=== PATIENT | female | born 1965 | race Caucasian/White ===

== ENCOUNTER 2019-06-29 17:12 | Inpatient (IN) | payer MEDICAID ==
[~2019-06-29] VITALS: Ht 147.3 cm; Wt 49.9 kg
[2019-06-29 17:30] VITALS: Ht 147.3 cm; Wt 49.9 kg
[2019-06-29 20:48] LABS: BASOPHIL % 0.3 % (0-2); PLATELET COUNT 271 x10^3mcL (130-400); RED CELL DISTRIBUTION WIDTH 12.9 % (11.5-14.5)
[2019-06-29 21:16] LABS: CALCIUM 9.4 mg/dL (8.5-10.1); CARBON DIOXIDE 24.2 mmol/L (21-32); CHLORIDE SERUM 104 mmol/L (98-107); CREATININE SERUM 0.7 mg/dL (0.6-1.0); GFR1 > 60 mL/min; GLUCOSE SERUM 82 mg/dL (74-106); POTASSIUM SERUM 3.5 mmol/L (3.5-5.1); SODIUM SERUM 141 mmol/L (136-145)
[2019-06-29 21:17] LABS: microscopic required? YES; urine erythrocyte TRACE (NEGATIVE)
[2019-06-29 21:27] LABS: ALBUMIN 4.1 g/dL (3.4-5.0); ALKALINE PHOSPHATASE 74 U/L (46-116); ALT/SGPT 28 U/L (14-59); AST/SGOT 21 U/L (15-37); BILIRUBIN TOTAL 0.5 mg/dL (0.20-1.00); TOTAL PROTEIN, SERUM 7.7 g/dL (6.4-8.2)
[2019-06-29 21:45] LABS: LIPASE 11027 IU/L (73-393)
[2019-06-29] MEDS ORDERED: NATURE'S BLEND M3 MG PO (23:48)
[2019-06-29] MEDS ORDERED: CEPHALEXIN500 MG PO (23:48)
[2019-06-29] MEDS ORDERED: BACLOFEN10 MG PO (23:51)
[2019-06-29] MEDS ORDERED: ATORVASTATIN CA20 M1 PO (23:52)
[2019-06-29] MEDS ORDERED: CAMBIA50 M1 PO (23:52)
[2019-06-29] MEDS ORDERED: IRON240 MG PO (23:52)
[2019-06-30 00:02] LABS: CHOLESTEROL/HDL RATIO 2.4
[2019-06-30 00:46] VITALS: BP 126/71
[2019-06-30 04:51] VITALS: BP 109/56
[2019-06-30 06:33] LABS: BASOPHIL % 0.4 % (0-2); PLATELET COUNT 256 x10^3mcL (130-400)
[2019-06-30 07:50] LABS: CALCIUM 8.3 mg/dL (8.5-10.1); CARBON DIOXIDE 23.4 mmol/L (21-32); CHLORIDE SERUM 107 mmol/L (98-107); CREATININE SERUM 0.6 mg/dL (0.6-1.0); GFR1 > 60 mL/min; GLUCOSE SERUM 89 mg/dL (74-106); MAGNESIUM 2.1 mg/dL (1.8-2.4); PHOSPHOROUS 3.4 mg/dL (2.5-4.9); POTASSIUM SERUM 3.6 mmol/L (3.5-5.1); SODIUM SERUM 142 mmol/L (136-145)
[2019-06-30 07:57] VITALS: BP 104/53
[2019-06-30 09:45] LABS: BILIRUBIN DIRECT 0.14 mg/dL (0.0-0.2); BILIRUBIN TOTAL 0.4 mg/dL (0.20-1.00); TOTAL PROTEIN, SERUM 6.4 g/dL (6.4-8.2)
[2019-06-30 09:47] LABS: ALBUMIN 3.3 g/dL (3.4-5.0)
[2019-06-30 11:59] VITALS: BP 108/57
[2019-06-30 16:00] VITALS: BP 109/56
[2019-06-30 18:49] LABS: AMPHETAMINE QUAL UR NONE DETECTED (See below)
[2019-06-30 21:12] VITALS: BP 100/60
[2019-07-01 05:36] VITALS: BP 100/54
[2019-07-01 06:45] LABS: BASOPHIL % 0.3 % (0-2); PLATELET COUNT 243 x10^3mcL (130-400); RED CELL DISTRIBUTION WIDTH 12.9 % (11.5-14.5)
[2019-07-01 07:01] LABS: CALCIUM 8.2 mg/dL (8.5-10.1); CARBON DIOXIDE 22.9 mmol/L (21-32); CHLORIDE SERUM 107 mmol/L (98-107); CREATININE SERUM 0.5 mg/dL (0.6-1.0); GFR1 > 60 mL/min; GLUCOSE SERUM 79 mg/dL (74-106); LIPASE 276 IU/L (73-393); MAGNESIUM 1.9 mg/dL (1.8-2.4); PHOSPHOROUS 2.7 mg/dL (2.5-4.9); POTASSIUM SERUM 3.3 mmol/L (3.5-5.1); SODIUM SERUM 142 mmol/L (136-145)
[2019-07-01 08:03] VITALS: BP 113/65
[2019-07-01 12:02] VITALS: BP 111/61
[2019-07-01 16:39] VITALS: BP 118/64
[2019-07-01 20:06] VITALS: BP 136/76
[2019-07-02 05:20] VITALS: BP 129/75
[2019-07-02 08:16] VITALS: BP 136/83
[2019-07-02 09:15] VITALS: BP 136/83
== END 2019-07-02 10:47 | disposition home or self-care (01) | DRG 282 ==
LOC: ED 17:12 → MU 22:35
PROVIDERS: Emergency Medicine; Internal Medicine Gastroenterology; ADMIT Internal Medicine
PROC: 0DB68ZX Excision of Stomach, Via Natural or Artificial Opening Endoscopic, Diagnostic (ICD-10-PCS; principal; 2019-07-01 15:15)
DX: K85.90 Acute pancreatitis without necrosis or infection, unspecified (principal); E44.1 Mild protein-calorie malnutrition; E78.00 Pure hypercholesterolemia, unspecified; N39.0 Urinary tract infection, site not specified; E83.51 Hypocalcemia; K85.10 Biliary acute pancreatitis without necrosis or infection; Z79.899 Other long term (current) drug therapy
CPT/HCPCS: 43235; G0378; J0696; J1200; J1610; J1885; J2250; J2270; J2310; J2405; J2543; J3010; J3490; J7030; Q0092

== ENCOUNTER 2019-07-03 12:12 | Emergency (ER) | payer MEDICAID ==
[~2019-07-03] VITALS: Ht 149.9 cm; Wt 48.1 kg
[~2019-07-03 12:12] MED LIST: ATORVASTATIN CA20 M1 PO; BACLOFEN10 MG PO; CAMBIA50 M1 PO; CEPHALEXIN500 MG PO; IRON240 MG PO; NATURE'S BLEND M3 MG PO
[2019-07-03 12:18] VITALS: Ht 149.9 cm; Wt 48.1 kg
[2019-07-03 12:56] LABS: BASOPHIL % 0.1 % (0-2); PLATELET COUNT 284 x10^3mcL (130-400); RED CELL DISTRIBUTION WIDTH 13.1 % (11.5-14.5)
[2019-07-03 13:15] LABS: ALKALINE PHOSPHATASE 71 U/L (46-116); ALT/SGPT 18 U/L (14-59); AST/SGOT 12 U/L (15-37); BILIRUBIN TOTAL 0.4 mg/dL (0.20-1.00); CALCIUM 8.8 mg/dL (8.5-10.1); CARBON DIOXIDE 28.2 mmol/L (21-32); CHLORIDE SERUM 104 mmol/L (98-107); CREATININE SERUM 0.6 mg/dL (0.6-1.0); GFR1 > 60 mL/min; GLUCOSE SERUM 109 mg/dL (74-106); SODIUM SERUM 143 mmol/L (136-145); TOTAL PROTEIN, SERUM 7.2 g/dL (6.4-8.2)
[2019-07-03 14:34] VITALS: BP 126/73
== END 2019-07-03 14:34 | disposition home or self-care (01) ==
LOC: ED 12:12
PROVIDERS: Emergency Medicine
DX: E87.6 Hypokalemia (principal); J18.9 Pneumonia, unspecified organism; F41.9 Anxiety disorder, unspecified; E78.00 Pure hypercholesterolemia, unspecified; R11.2 Nausea with vomiting, unspecified; R20.0 Anesthesia of skin; R10.13 Epigastric pain; E78.5 Hyperlipidemia, unspecified
CPT/HCPCS: 36415; Q0092

== ENCOUNTER 2019-07-03 20:13 | Emergency (ER) | payer MEDICAID ==
[~2019-07-03] VITALS: Ht 149.9 cm; Wt 48.1 kg
[2019-07-03 20:23] VITALS: Ht 149.9 cm; Wt 48.1 kg
[2019-07-03 22:10] LABS: BASOPHIL % 0.4 % (0-2); PLATELET COUNT 256 x10^3mcL (130-400); RED CELL DISTRIBUTION WIDTH 13.1 % (11.5-14.5)
[2019-07-03 22:14] LABS: microscopic required? YES; urine erythrocyte 1+ (NEGATIVE)
[2019-07-03 23:23] LABS: CARBON DIOXIDE 25.5 mmol/L (21-32); CHLORIDE SERUM 104 mmol/L (98-107); CREATININE SERUM 0.4 mg/dL (0.6-1.0); GFR1 > 60 mL/min; GLUCOSE SERUM 109 mg/dL (74-106); POTASSIUM SERUM 3.1 mmol/L (3.5-5.1); SODIUM SERUM 141 mmol/L (136-145)
[2019-07-03 23:32] LABS: ALBUMIN 2.9 g/dL (3.4-5.0); ALKALINE PHOSPHATASE 66 U/L (46-116); ALT/SGPT 16 U/L (14-59); AST/SGOT 16 U/L (15-37); BILIRUBIN TOTAL 0.31 mg/dL (0.20-1.00); LIPASE 102 IU/L (73-393); TOTAL PROTEIN, SERUM 6.8 g/dL (6.4-8.2)
[2019-07-04 00:11] VITALS: BP 155/66
== END 2019-07-04 00:11 | disposition home or self-care (01) ==
LOC: ED 20:13
PROVIDERS: Emergency Medicine
DX: R10.13 Epigastric pain (principal); R11.0 Nausea; K85.90 Acute pancreatitis without necrosis or infection, unspecified; J18.9 Pneumonia, unspecified organism; E78.00 Pure hypercholesterolemia, unspecified
CPT/HCPCS: J2405; J3010; J7030